=== PATIENT | male | born 1995 | race Caucasian/White ===

== ENCOUNTER 2016-10-13 11:46 | Emergency (ER) | payer OTHER ==
[2016-10-13 11:50] VITALS: BP 139/74; PULSE 102; RESP 20; TEMP 98.8
[2016-10-13] MEDS ORDERED: BUPIVACAINE (PF) 0.5% 30 ML VIAL SQ STA (12:02)
[2016-10-13] MEDS ORDERED: CLINDAMYCIN 150 MG CAP PO STA (12:02)
--- NOTE | 2016-10-13 12:18 | ED ---
ENT HPI - General Chief complaint: Dental/Oral Stated complaint: tooth abcess Time Seen by Provider: 10/13/16 12:01 Source: patient, RN notes reviewed, old records reviewed Mode of arrival: ambulatory Limitations: no limitations - History of Present Illness Initial comments: This is a pleasant 21-year-old male presenting to emergency Department chief complaint of left upper tooth pain and swelling for the past 5 days. He reports it started with a toothache. Patient reports that he noticed some minor swelling and took some previous prescription of amoxicillin for a day. Patient reports that the last time he had antibiotic was 2 days ago. Patient reports that since then his face is started to swell immensely. He denies any difficulty opening or closing his jaw. Denies any shortness breath, chest pain , headache, vision changes. Patient is concerned because the swelling is now extending to the upper lip and near the eye. Patient states that he's had no fever or chills. Does not have a dentist at this time. Patient reports that he plans to see one shortly. - Related Data Previous Rx's Medication Instructions Recorded Acetaminophen with Codeine 1 each PO Q4H #20 tab 03/30/14 [Tylenol w/codeine #3] Clindamycin [Cleocin] 450 mg PO TID 10 Days 10/13/16 HYDROcodone/APAP 5-325MG [[place] 1 - 2 tab PO Q4H PRN #15 tab 10/13/16 5-325] Allergies Allergy/AdvReac Type Severity Reaction Status Date / Time No Known Allergies Allergy Verified 10/13/16 11:49 Review of Systems ROS Statement: Those systems with pertinent positive or pertinent negative responses have been documented in the HPI. ROS Other: All systems not noted in ROS Statement are negative. Past Medical History Past Medical History: No Reported History Additional Past Medical History / Comment(s): "MASS" ON LEFT BREAST History of Any Multi-Drug Resistant Organisms: None Reported Past Surgical History: Appendectomy, Orthopedic Surgery Additional Past Surgical History / Comment(s): RIGHT FOREARM ORIF WITH METAL, left breast biospy Past Anesthesia/Blood Transfusion Reactions: No Reported Reaction Past Psychological History: No Psychological Hx Reported Smoking Status: Current every day smoker Past Alcohol Use History: None Reported Past Drug Use History: Marijuana General Exam - General Exam Comments Initial Comments: This is a 21-year-old male. Patient does not appear to be in any acute distress. Limitations: no limitations General appearance: alert, in no apparent distress Head exam: Present: atraumatic, normocephalic, normal inspection Eye exam: Present: normal appearance, PERRL, EOMI. Absent: scleral icterus, conjunctival injection, periorbital swelling ENT exam: Present: mucous membranes moist, other (Patient does have significant amount of facial swelling over the left upper lip extending towards the left maxilla. No evidence of redness or swelling around the eye.). Absent: normal exam, normal oropharynx ( and has extreme upper dentition. Patient reports pain over tooth #11. Patient reports that that's where he believes the abscess starting.) Neck exam: Present: normal inspection. Absent: tenderness, meningismus, lymphadenopathy Respiratory exam: Present: normal lung sounds bilaterally. Absent: respiratory distress, wheezes, rales, rhonchi, stridor Cardiovascular Exam: Present: regular rate, normal rhythm, normal heart sounds. Absent: systolic murmur, diastolic murmur, rubs, gallop, clicks GI/Abdominal exam: Present: soft, normal bowel sounds. Absent: distended, tenderness, guarding, rebound, rigid Extremities exam: Present: normal inspection, full ROM, normal capillary refill. Absent: tenderness, pedal edema, joint swelling, calf tenderness Back exam: Present: normal inspection. Absent: CVA tenderness (R) Neurological exam: Present: alert, oriented X3, CN II-XII intact Psychiatric exam: Present: normal affect, normal mood Skin exam: Present: warm, dry, intact, normal color. Absent: rash Course Vital Signs 10/13/16 11:48 Temperature 98.8 F Pulse Rate 102 H Respiratory 20 Rate Blood Pressure 139/74 O2 Sat by Pulse 99 Oximetry Medical Decision Making - Medical Decision Making This is a pleasant 21-year-old male presenting to emergency Department chief complaint of left upper tooth pain and swelling for the past 5 days. He reports it started with a toothache. Patient reports that he noticed some minor swelling and took some previous prescription of amoxicillin for a day. Patient reports that the last time he had antibiotic was 2 days ago. Patient reports that since then his face is started to swell immensely. He denies any difficulty opening or closing his jaw. Denies any shortness breath, chest pain , headache, vision changes. Patient does have significant facial swelling consistent with a dental abscess that is now broken worse. Patient does have a significant dental caries over tooth #11, and 1314. Patient reports the pain were to started tooth #11. Patient was started on clindamycin and given pain medication. Discussed baby does not have any improvement in symptoms within 24 hours of starting the antibiotic patient needs to return. Patient agrees to treatment plan will comply. Return parameters were discussed. Disposition Clinical Impression: Dental abscess Disposition: HOME SELF-CARE Condition: Good Instructions: Dental Abscess (ED) Additional Instructions: Patient was completely entire antibiotic prescription. If you do not have any improvement within 1-2 days of antibiotic patient needs to return to emergency department. he needs to follow-up with dental clinics. [facility] [id number] [place] [address] [phone] (existing clients only) For new clients: [phone] 1st consult: $50 (includes Xrays) Usually 30% less then private dentist for visits after. [employer] Have to pay $50 for Xrays anmd rest is covered. [phone] Prescriptions: Clindamycin [Cleocin] 450 mg PO TID 10 Days HYDROcodone/APAP 5-325MG [[place] 5-325] 1 - 2 tab PO Q4H PRN #15 tab PRN Reason: Pain Referrals: Harsha Bahena MD [Primary Care Provider] - 1-2 days Time of Disposition: 12:14
== END 2016-10-13 12:34 | disposition home or self-care (01) ==
LOC: EC 11:46
DX: K05.219 Aggressive periodontitis, localized, unspecified severity (principal); K02.9 Dental caries, unspecified; F17.200 Nicotine dependence, unspecified, uncomplicated
CPT/HCPCS: 99283